=== PATIENT | male | born 1985 | race Native Hawaiian/Other Pacific Islander ===

== ENCOUNTER 2022-02-18 13:29 | Outpatient (CLI) | payer OTHER | END 2022-02-18 19:13 | disposition home or self-care (01) | LOC: US 13:29 | PROVIDERS: ATTEND Nurse Practitioner Family | DX: R31.29 Other microscopic hematuria (principal) ==

== ENCOUNTER 2022-07-12 17:31 | Emergency (ER) | payer OTHER ==
[~2022-07-12] VITALS: Ht 180.3 cm; Wt 129.7 kg
[2022-07-12 17:35] VITALS: BP 159/117; TEMP 99.1
[2022-07-12 18:54] LABS: PARTIAL THROMBOPLASTIN TIME 24.1 SECONDS (24.5-33.6)
[2022-07-12 19:16] LABS: PLATELET COUNT 325 K/uL (142-355)
== END 2022-07-12 20:40 | disposition home or self-care (01) ==
LOC: ED 17:31
PROVIDERS: Internal Medicine
DX: I48.91 Unspecified atrial fibrillation (principal)
CPT/HCPCS: 36415; 80053; 80307; 83735; 84484; 85027; 85610; 85730; 93005; 99284